=== PATIENT | male | born 1930 ===

== ENCOUNTER 2020-11-16 13:17 | Outpatient (CLI) | payer OTHER | END 2020-11-16 13:22 | disposition home or self-care (01) | LOC: LAB 13:17 | PROVIDERS: ATTEND Radiology Diagnostic Radiology | DX: N20.0 Calculus of kidney (principal) ==

== ENCOUNTER 2020-11-23 10:19 | Outpatient (CLI) | payer OTHER | END 2020-11-23 10:22 | disposition home or self-care (01) | LOC: LAB 10:19 | PROVIDERS: ATTEND Urology | DX: D07.4 Carcinoma in situ of penis (principal); D68.8 Other specified coagulation defects; N39.0 Urinary tract infection, site not specified; I10 Essential (primary) hypertension ==

== ENCOUNTER 2020-11-24 08:38 | Outpatient (CLI) | payer OTHER | END 2020-11-24 08:48 | disposition home or self-care (01) | LOC: TOM 08:38 | PROVIDERS: ATTEND Urology | DX: D07.4 Carcinoma in situ of penis (principal) | CPT/HCPCS: 72193; Q9965 ==

== ENCOUNTER 2020-11-30 07:45 | Inpatient (IN) | payer OTHER ==
[2020-11-30] MEDS ORDERED: AMLODIPINE BESYL5 MG PO (08:52)
[2020-11-30] MEDS ORDERED: ENALAPRIL MALEA10 MG PO (08:53)
[2020-11-30] MEDS ORDERED: ISORBIDE PO (08:54)
[2020-11-30] MEDS ORDERED: ZETIA10 MG PO (08:55)
== END 2020-12-01 16:00 | disposition home or self-care (01) | DRG 710 ==
LOC: ADM 07:45 → O/R 12-01 02:00 → CIR.AMB 12-01 06:00 → EDSTATUS 12-01 07:45 → O/R 12-01 16:00 → CIR.AMB 12-01 18:00
PROVIDERS: ADMIT Urology; ATTEND Urology
PROC: 0VTS0ZZ Resection of Penis, Open Approach (ICD-10-PCS; principal; 2020-12-01 07:00)
DX: C60.1 Malignant neoplasm of glans penis (principal); Z20.822 Contact with and (suspected) exposure to COVID-19